=== PATIENT | male | born 1960 ===

== ENCOUNTER 2024-09-07 10:40 | Day surgery (SDC) | payer BC ==
[~2024-09-07 10:40] MED LIST: Dexamethasone 4 MG/ML 5 ML MDV ONE; Ketorolac 30 MG/ML SDV ONE; Lidocaine 2% 5 ML SDV ONE; Ondansetron 4 MG/2 ML SDV ONE; Propofol 200 MG/20 ML SDV ONE; Sodium Chloride 0.9% 10 ML Syringe FLUSH PRN; Sodium Chloride 0.9% 10 ML Syringe FLUSH SCH; ceFAZolin 2 GM Vial ONE; dexmedeTOMIDine HCl 200 MCG/2 ML SDV ONE; fentaNYL 100 MCG/2 ML SDV ONE
[2024-09-07] MEDS: Lactated Ringers 1,000 ML IV SCH (11:15)
[2024-09-07] MEDS: Acetaminophen 325 MG Tab PO ONE (11:33)
[2024-09-07] MEDS: Famotidine 20 MG/2 ML SDV IVPUSH ONE (11:35)
[2024-09-07] MEDS ORDERED: Phenylephrine 1% 10 MG/ML SDV ONE (12:12)
[2024-09-07] MEDS: Bupivacaine 0.5% 30 ML SDV ONE (12:50)
[2024-09-07] MEDS: EPINEPHrine 1 MG/ML SDV ONE (12:50)
[2024-09-07] MEDS ORDERED: ePHEDrine 50 MG/ML SDV ONE (13:00)
[2024-09-07] MEDS ORDERED: fentaNYL 100 MCG/2 ML SDV IVPUSH PRN (13:00)
[2024-09-07] MEDS ORDERED: Ondansetron 4 MG/2 ML SDV IVPUSH PRN (13:00)
[2024-09-07] MEDS ORDERED: HYDROmorphone 0.5 MG/0.5 ML Syringe IVPUSH PRN (13:00)
[2024-09-07 15:28] VITALS: BP 108/65; PULSE 75
== END 2024-09-07 15:20 | disposition home or self-care (01) ==
LOC: JD.SDS 10:40
PROVIDERS: ATTEND Surgery
DX: K40.90 Unilateral inguinal hernia, without obstruction or gangrene, not specified as recurrent (principal); I10 Essential (primary) hypertension; E78.5 Hyperlipidemia, unspecified; Z79.899 Other long term (current) drug therapy; F17.200 Nicotine dependence, unspecified, uncomplicated
CPT/HCPCS: 49505; A9270; J0171; J0665; J0690; J1100; J1885; J2371; J2405; J2704; J3010; J3490; J7120; 00830; C1781